=== PATIENT | female | born 1995 | race Two or more races ===

== ENCOUNTER 2022-10-30 05:36 | Inpatient (IN) | payer OTHER ==
[~2022-10-30] VITALS: Ht 162.6 cm; Wt 71.7 kg
[2022-10-30] MEDS ORDERED: NIFEDIPINE20 MG PO (06:42)
== END 2022-11-01 13:03 | disposition home or self-care (01) | DRG 788 ==
LOC: LDR 05:36 → OB/GYN 13:17
PROVIDERS: ADMIT Specialist; ATTEND Specialist
PROC: 4A1HXCZ Monitoring of Products of Conception, Cardiac Rate, External Approach (ICD-10-PCS; 2022-10-30)
PROC: 10D00Z1 Extraction of Products of Conception, Low, Open Approach (ICD-10-PCS; principal; 2022-10-30 11:00)
DX: O69.0XX0 Labor and delivery complicated by prolapse of cord, not applicable or unspecified (principal); Z3A.37 37 weeks gestation of pregnancy; Z37.0 Single live birth; Z20.822 Contact with and (suspected) exposure to COVID-19